=== PATIENT | female | born 1975 | race African-American/Black ===

== ENCOUNTER → 2018-12-09 07:13 | Outpatient (CLI) | payer MEDICAID ==
[2013-08-16 09:35] VITALS: BMI 32.1
[~2018-12-09 07:13] MED LIST: ESTRAGEN PO; FLEXERIL10 MG PO; NEURONTIN600 MG PO
== END | disposition home or self-care (01) ==
LOC: D.MRI 12-07 07:00
PROVIDERS: ATTEND Nurse Practitioner Acute Care
DX: K76.9 Liver disease, unspecified (principal)